=== PATIENT | female | born 1965 | race African-American/Black ===

== ENCOUNTER 2016-10-07 17:56 | Observation (INO) ==
[2016-10-07] MEDS ORDERED: ASPIRIN 325 MG TABLET PO STA (19:23)
[2016-10-07] MEDS ORDERED: NITROGLYCERIN 2% OINT 1 INCH/GM PACK TOP STA (19:23)
[2016-10-07] MEDS ORDERED: MORPHINE 2 MG/1 ML SYRINGE IV STA (19:23)
[2016-10-07] MEDS ORDERED: ONDANSETRON 4 MG/2 ML VIAL IV STA (19:23)
[2016-10-07] MEDS ORDERED: ALUM/MAG/SIMETH/LIDO VISC 1:1 30 ML BOTTLE PO STA (19:23)
[2016-10-07] MEDS ORDERED: LABETALOL 20 MG/4 ML SYRINGE IV STA (19:23)
--- NOTE | 2016-10-07 19:23 | Emergency Department Note ---
Eliot Wallis Sierra, am scribing for, and in the presence of, Roque Pollard MD 19:05. Atul Wallis Charles R, MD, personally performed the services described in this documentation, ascribed by Cony Mccabe in my presence, and it is both accurate and complete 923 . Arrival - Arrival Chief Complaint: Chest Pain Stated Complaint: CHEST PAINS ED Nursing Triage Note: C/o midsternal chest pain radiating to neck and left arm -onset 10 mins ago. Denies SOB. +dizziness. Mode of Arrival: Wheelchair Limitations: No Limitations Source: Patient Time Seen by Provider: 10/07/16 18:25 - History of Present Illness HPI Narrative: Pt is a 51 y/o female that came to the ED with c/o CP that began about an hour and a half ago. Pt has associated sxs of DUDLEY and elevated blood pressure but denies nausea or SOB. Pt reports the pain is on the left side and is tender to touch and is worse when she moves around. Pt denies a history of heart problems. She states she does have HTN and takes 20 mg Lisinopril daily and did take her dosage last night. Pt denies her blood pressure normally being this high. She denies a Hx of asthma. No other complaints/pain in ED. Onset (ago): hour(s) Consistency: constant Severity: mild, moderate Severity scale (1-10): 3 Quality: sharp Date of Last Menstrual Period: menopause Allergies/Adverse Reactions: Allergies Allergy/AdvReac Type Severity Reaction Status Date / Time ceftriaxone [From Rocephin] Allergy HIVES Verified 08/06/15 15:07 Cherries Allergy HIVES Verified 08/06/15 15:07 Home Medications: Home Medications Medication Instructions Recorded Confirmed Type Lisinopril [Prinivil] 20 mg PO DAILY 10/07/16 10/07/16 History Review of System - Review of System 12 point system: reviewed and no additional remarkable complaints except as stated - Review of System Constitutional: Absent: chills, fever Respiratory: Absent: cough, respiratory distress Cardiovascular: Present: chest pain (left sided CP that is tender to the touch) Gastrointestinal: Absent: abdominal pain, nausea, vomiting Musculoskeletal: Absent: arm pain, back pain, leg pain, neck pain Skin: Absent: rash Neurological: Present: headache Psychiatric: Absent: anxiety Medical,Surgical,& Family Hx - Medical History Cardio: History of: Hypertension - Social History Smoking Status: Never smoker Frequency of Alcohol Use: None Type of Drug Use: None Exam Vital Signs: Vital Signs Temperature 98.7 F 10/07/16 17:59 Pulse Rate 61 10/07/16 19:00 Respiratory Rate 20 10/07/16 19:00 Blood Pressure 227/107 10/07/16 19:00 O2 Sat by Pulse Oximetry 100 10/07/16 19:00 - General General appearance: alert, in no apparent distress - Head Head exam: Present: atraumatic, normocephalic - Eye Eye exam: Present: PERRL, EOMI - ENT ENT exam: Present: mucous membranes moist. Absent: mucous membranes dry - Neck Neck exam: Present: full ROM. Absent: tenderness - Chest Chest inspection: Present: symmetric chest wall rise, tenderness (reproducable chest wall tenderness on the left side) - Respiratory Respiratory exam: Present: normal lung sounds bilaterally. Absent: respiratory distress - Cardiovascular Cardiovascular exam: Present: normal rhythm, bradycardia, normal heart sounds - Abdominal Exam Abdominal exam: Present: soft. Absent: tenderness - Extremities Exam Extremities exam: Present: full ROM. Absent: tenderness - Back Exam Back exam: Present: full ROM. Absent: tenderness - Neurological Exam Neurological exam: Present: alert, oriented X3, CN II-XII intact. Absent: motor sensory deficit - Psychiatric Psychiatric exam: Present: normal affect, normal mood - Skin Skin exam: Present: warm, dry Course - Consultations Consultation #1: Hospitalist will admit patient Time: 19:58 Results - Labs CBC & BMP: 10/07/16 18:58 10/07/16 18:58 Lab Results: I have reviewed the patients labs Labs: Laboratory Tests 10/07/16 18:58 Hgb 11.4 L MCV 79.4 L MCH 25 L MCHC 31.5 L Lymph % (Auto) 16.8 L Lymph # (Auto) 0.9 L Laboratory Tests 10/07/16 18:58 Potassium 3.2 L Chloride 109 H Glucose 138 H Globulin 3.9 H Albumin/Globulin Ratio 0.9 L Critical Care Time Critical Care Time: Yes Total Critical Care Time: 60 Disposition Clinical Impression: Chest pain, Uncontrolled hypertension, Hypokalemia Case discussed with: patient, patient's family Disposition: Still a Patient Condition: Stable Time of Disposition: 20:02
[2016-10-07] MEDS ORDERED: MORPHINE 2 MG/1 ML SYRINGE ONE (19:28)
[2016-10-07] MEDS ORDERED: LABETALOL 20 MG/4 ML SYRINGE IV ONE (19:28)
[2016-10-07] MEDS ORDERED: ONDANSETRON 4 MG/2 ML VIAL ONE (19:28)
[2016-10-07] MEDS ORDERED: ASPIRIN 325 MG TABLET ONE ×2 (19:28→19:36)
[2016-10-07] MEDS ORDERED: ALUM/MAG/SIMETH/LIDO VISC 1:1 30 ML BOTTLE PO ONE (19:28)
[2016-10-07] MEDS ORDERED: NITROGLYCERIN 2% OINT 1 INCH/GM PACK TOP ONE ×2 (19:28→19:35)
[2016-10-07 19:31] LABS: Basophils % 0.7 % (0.0-0.8); Eosinophils # 0.1 10*3/uL (0.0-0.87); Eosinophils % 1.3 % (0.00-10.9); Hematocrit 36.2 VOL% (35.7-47.0); Hemoglobin 11.4 GM/DL (12.0-16.0); Immature Granulocytes % 0.2 %; Immature Granulocytes Absolute 0.01 #; Lymphocytes # 0.9 10*3/uL (1.4-4.0); Lymphocytes % 16.8 % (21.3-54.2); Mean Corpuscular HGB Conc 31.5 GM/DL (32-36); Mean Corpuscular Hemoglobin 25 PG (27-34); Mean Corpuscular Volume 79.4 FL (87-102); Mean Platelet Volume 10.9 FL (9.6-12.0); Monocytes # 0.6 10*3/uL (0.11-0.8); Monocytes % 10.5 % (1.7-12.7); Neutrophils # 3.8 10*3/uL (1.4-7.4); Neutrophils % 70.5 % (38.7-73.9); Platelet Count 290 T/CUMM (130-400); Red Blood Count 4.56 MC/CUMM (3.8-5.5); Red Cell Distribution Width 14.6 % (9.3-17.3); White Blood Count 5.4 T/CUMM (4-12)
[2016-10-07 19:39] LABS: D-Dimer <= 0.5 MG/L FEU; INR 1.1; PT Patient Result 11.6 SECS
[2016-10-07 19:44] LABS: Albumin 3.6 G/DL (3.4-5.0); Bilirubin,Total 0.4 MG/DL (0.2-1.0); Potassium 3.2 MMOL/L (3.5-5.1); Total Protein 7.5 G/DL (6.4-8.3)
[2016-10-07] MEDS ORDERED: POTASSIUM CHLORIDE 20 MEQ TABLET PO STA (19:54)
[2016-10-07] MEDS ORDERED: ONDANSETRON 4 MG/2 ML VIAL IV PRN (20:01)
[2016-10-07] MEDS ORDERED: ENOXAPARIN 100 MG/ML SYRINGE SUBCUT STA (20:03)
[2016-10-07] MEDS ORDERED: POTASSIUM CHLORIDE 20 MEQ TABLET PO ONE (20:05)
[2016-10-07] MEDS ORDERED: ENOXAPARIN 80 MG/0.8 ML SYRINGE SUBCUT ONE ×3 (20:06→20:07)
[2016-10-07 20:11] LABS: Apearance,Urine Slightly Hazy (Clear); Bilirubin,Urine Negative (Negative); Blood, Urine Negative (Negative); Glucose,Urine (UA) Negative (Negative); Hyaline Casts,Urine 7 /LPF (0-3); Ketones,Urine Negative (Negative); Mucus,Urine Occasional /LPF (Occasional); Nitrite,Urine Negative (Negative); Protein,Urine 100 MG/DL; Squamous Epithelial Cell,Urine Occasional /HPF (0-10); Urine Color Yellow (Yellow); Urine Specific Gravity 1.017 (1.001-1.035); Urine Urobilinogen < 2.0 EU/DL (0.2-1.0); WBC,Urine 1 /HPF (0-6)
[2016-10-07] MEDS ORDERED: hydrALAZINE 20 MG/1 ML VIAL IV STA (20:31)
[2016-10-07] MEDS ORDERED: hydrALAZINE 20 MG/1 ML VIAL ONE (20:32)
[2016-10-07 20:43] LABS: Risk Ratio 3.2; VLDL CHOLESTEROL 15.8 MG/DL
--- NOTE | 2016-10-07 20:47 | XRay Report ---
XR chest 2V Indication: Chest pain. Comparison: None. Technique: PA and lateral chest x-ray was performed. Findings: The heart size appears borderline in size. The mediastinal contour and hilar structures demonstrate no significant abnormalities. Lungs are clear. Bones and soft tissues demonstrate no evidence of acute pathology. Impression: 1. No active cardiopulmonary disease. 10/07/2016 8:43 PM PROCEDURE INTERPRETED AT [facility] DEPARTMENT OF RADIOLOGY Final Report Signed by: Dr. Fili Sheppard
--- NOTE | 2016-10-07 20:54 | Hospitalist History & Physical ---
Assessment and Plan (1) Chest pain Status: Acute Assessment and plan: Chest pain relieved with O2, morphine and NTG in ED. Nonreproducible to palpation. Admit for observation and possible stress test in the am. Cardiology consulted. Current Visit: Yes (2) Uncontrolled hypertension Status: Acute Assessment and plan: BP 214/108 on admission. Up to 227/107. Lobetalol and hydralazine given in ED. Systolic down to 180 at time of exam. Patient states that she takes Lisinopril 20mg daily, but has not been compliant in the last few months. Continue to monitor BP overnight. Continue home meds. Add prn hydralazine. Patient is asymptomatic. Current Visit: Yes (3) Hypokalemia Status: Acute Current Visit: Yes History of Present Illness Chief complaint: chest pain History of present illness: Ms. Ta is a 51 year old female risk factors significant for: hypertension , family history and obesity [facility] with complaints of chest pain with onset 3 hours ago. The patient reports that, after eating tonight, she began to experience a "vice-like" tightness over her left chest wall with pain that radiated to her neck, jaw and left shoulder. She also reports numbness and tingling in her left fingers. She states she did not take anything for the pain, opting instead to come directly to the emergency room. On admission, she was found to be in hypertensive urgency with associated chest pain. She was given oxygen, morphine, aspirin, nitroglycerin paste, hydralazine , and lobetalol with appropriate response. On exam, the patient is resting comfortably and in no acute distress. She denies headache, shortness of breath, nausea/vomiting, edema. Chest pain is nonreproducible to palpation. The patient notes that she has a significant family history of heart disease before the age of 55. EKG is unremarkable; NSR. Cardiac enzymes are negative. Given her risk factors, the patient will be admitted for observation and possible stress test in the am. Cardiology will be consulted. She is a full code. Home Medications Medication Instructions Recorded Confirmed Type Lisinopril [Prinivil] 20 mg PO DAILY 10/07/16 10/07/16 History Allergies Allergy/AdvReac Type Severity Reaction Status Date / Time ceftriaxone [From Rocephin] Allergy HIVES Verified 08/06/15 15:07 Cherries Allergy HIVES Verified 08/06/15 15:07 Medical,Surgical,& Family Hx - Medical History Cardio: History of: Hypertension - Family History Family History: Reports;: Family Heart Disease, Family Hypertension - Social History Smoking Status: Never smoker Frequency of Alcohol Use: None Type of Drug Use: None Marital Status: Lives With:: Spouse Functional capacity: independent ambulation - Constitutional Constitutional: Absent: fever(s), headache(s), night sweats, weakness - EENT Eyes: Present: blurry vision Ears: Absent: decreased hearing, ear pain Nose, mouth and throat: Absent: headache(s), neck pain, sore throat - Cardiovascular Cardiovascular: Present: chest pain at rest, dyspnea on exertion, radiating jaw , neck or arm pain. Absent: diaphoresis, edema, lightheadedness, palpitations - Respiratory Respiratory: Present: dyspnea on exertion. Absent: cough, dyspnea, wheezing, snoring, pain on inspiration - Gastrointestinal Gastrointestinal: Absent: abdominal pain, constipation, diarrhea, nausea, vomiting - Genitourinary Genitourinary: Absent: difficulty urinating, dysuria, flank pain - Musculoskeletal Musculoskeletal: Absent: back pain, muscle weakness - Neurological Neurological: Present: numbness, paresthesias. Absent: abnormal gait, abnormal speech, dizziness, syncope - Psychiatric Psychiatric: Absent: anxiety, confusion, depression - Endocrine Endocrine: Absent: cold intolerance, fatigue, heat intolerance - Hematologic/Lymphatic Hematologic/Lymphatic: Absent: easy bleeding, easy bruising Exam - Constitutional Exam: General appearance: obese, no acute distress - Head Head exam: Present: normocephalic, atraumatic - Eye Eye exam: Present: EOMI. Absent: conjunctival injection, nystagmus Pupils: Present: EMMANUEL, normal accommodation - ENT ENT exam: Present: normal exam, normal external ear exam - Neck Neck exam: Present: normal inspection. Absent: lymphadenopathy, tenderness, thyromegaly - Respiratory Respiratory exam: Present: clear to auscultation bilaterally. Absent: rales, rhonchi, wheezes - Cardiovascular Cardiovascular exam: Present: regular rate and rhythm. Absent: carotid bruit, gallop, rubs - GI/Abdominal GI/Abdominal exam: Present: normal bowel sounds. Absent: ascites, distended, mass - Extremities Exam Extremities exam: Present: normal inspection, normal capillary refill. Absent: edema - Back Exam Back exam: Absent: CVA tenderness (L), CVA tenderness (R) - Neurological Exam Neurological exam: Present: alert, oriented X3 - Psychiatric Psychiatric exam: Present: normal affect, normal mood - Skin Skin exam: Present: normal color, warm, dry Results - Labs CBC & BMP: 10/07/16 18:58 10/07/16 18:58 Lab Results: I have reviewed the past 24 hour labs - EKG EKG results: interpreted by CANDISD - Diagnostic Findings Procedure: Chest x-ray: image reviewed by me
[2016-10-07] MEDS ORDERED: hydrALAZINE 20 MG/1 ML VIAL IV PRN (21:23)
[2016-10-07] MEDS ORDERED: MORPHINE 2 MG/1 ML SYRINGE IV PRN (21:26)
[2016-10-08] MEDS: KETOROLAC 15 MG/1 ML VIAL IV SCH ×3 (00:05→12:12)
[2016-10-08 03:27] LABS: Eosinophils # 0.2 10*3/uL (0.0-0.87); Eosinophils % 3.6 % (0.00-10.9); Hematocrit 36.2 VOL% (35.7-47.0); Hemoglobin 11.4 GM/DL (12.0-16.0); Lymphocytes # 1.3 10*3/uL (1.4-4.0); Mean Corpuscular HGB Conc 31.5 GM/DL (32-36); Mean Corpuscular Hemoglobin 25 PG (27-34); Mean Corpuscular Volume 79.9 FL (87-102); Mean Platelet Volume 10.3 FL (9.6-12.0); Monocytes # 0.6 10*3/uL (0.11-0.8); Monocytes % 13.6 % (1.7-12.7); Neutrophils # 2.2 10*3/uL (1.4-7.4); Neutrophils % 51.8 % (38.7-73.9); Platelet Count 262 T/CUMM (130-400); Red Blood Count 4.53 MC/CUMM (3.8-5.5); Red Cell Distribution Width 14.6 % (9.3-17.3); White Blood Count 4.2 T/CUMM (4-12)
[2016-10-08 04:34] LABS: Free T4 (Free Thyroxine) 1.09 NG/DL (0.76-1.46); Thyroid Stimulating Hormone 2.08 uIU/ml (0.358-3.74)
[2016-10-08 04:45] LABS: Calcium 9.1 MG/DL (8.5-10.1); Osmolality,Calculated 284.8 MOS/KG (273-304); Potassium 4.2 MMOL/L (3.5-5.1)
--- NOTE | 2016-10-08 06:31 | EKG Report ---
Stationary ECG Study [facility] Test Date: 10/07/2016 9:54:56 PM Pat Name: CAROLINA ORTIZ Department: Room: 287 Gender: F Microfilmer: Jd : 1965 Requested by: Roque Rodriges Order Number: [id number] Reading MD: NAYA ARIAS Intervals [place] Rate: 62 P: 37 MN: 143 QRS: 48 QRSD: 91 T: 39 QT: 445 QTc: 449 Interpretive Statements SINUS RHYTHM Electronically Signed On 10-08-16 17:17:11 CDT by NAYA ARIAS [email or web address]
--- NOTE | 2016-10-08 07:55 | EKG Report ---
Stationary ECG Study [facility] ER Test Date: 10/07/2016 6:05:40 PM Pat Name: CAROLINA ORTIZ Department: Room: 287 Gender: F Natural Resources Specialist: Kristi Jones : 1965 Requested by: Roque Rodriges Order Number: [id number] Reading MD: NAYA ARIAS Intervals [place] Rate: 75 P: 78 VA: 135 QRS: 58 QRSD: 89 T: 72 QT: 390 QTc: 420 Interpretive Statements SINUS RHYTHM Electronically Signed On 10-08-16 17:15:50 CDT by NAYA ARIAS [email or web address]
[2016-10-08] MEDS ORDERED: LISINOPRIL 20 MG TABLET PO SCH (09:00)
[2016-10-08] MEDS ORDERED: ASPIRIN EC 81 MG TABLET PO SCH (09:00)
[2016-10-08] MEDS ORDERED: METOPROLOL TARTRATE 25 MG TABLET PO SCH (09:00)
[2016-10-08] MEDS ORDERED: PANTOPRAZOLE 40 MG TABLET PO SCH (09:00)
--- NOTE | 2016-10-08 09:02 | Cardiology Consult Note ---
Assessment and Plan - Time spent with patient Time spent with patient: Greater than 30 minutes (1) Chest pain Status: Acute Assessment and plan: See plan of care listed below. Current Visit: Yes (2) Uncontrolled hypertension Status: Chronic Assessment and plan: See plan of care listed below. Current Visit: Yes (3) Noncompliance Status: Chronic Assessment and plan: See plan of care listed below. Current Visit: Yes History of Present Illness - Data of Consult Patient: new to practice Consult date: 10/08/16 Requesting Physician: Arnaud Schulte - Consult Narrative Reason for consult: chest pain History of present illness: Splicing Machine Operator: SWATI Reardon PCP: [facility] Ms. Ta is a 51 year old female without known history of coronary artery disease, not routinely followed by cardiology. Patient presented to emergency department yesterday with complaints of midsternal chest pain. Patient has cardiac risk factors significant for hypertension, sedentary lifestyle and family history of coronary artery disease (uncle and grandfather had myocardial infarction). Patient is a lifetime non-smoker. Denies history of hyperlipidemia and diabetes. Patient reports that she has never undergone cardiac workup. Patient presented to [facility] yesterday with complaints of midsternal chest pain. She describes her pain as a sharp pain that radiates to her neck and left arm. This was associated with headache. She denies shortness of breath, nausea, diaphoresis and heart racing/palpitations. She tells me that this began yesterday evening around 6:00 after eating a sandwich. She was sitting down when it began. Lasted approximately 20 mins. She is unable to identify any specific aggravating or alleviating factors. Also, unable to rate her pain. However, she does confirm that this was not worsened with exertion. She presented to the ER for further evaluation. Upon arrival to ER her blood pressure was noted to be 227/107. Subsequently, she was given oxygen, morphine, aspirin, nitroglycerin paste, hydralazine and labetalol. This relieved her pain. She has been without any recurrent symptoms. She reports that she has been noncompliant with her lisinopril for the last several months. Spent greater than 5 minutes discussing the importance of medication compliance with her. She verbalizes understanding and reports that she will be compliant from now on. Patient has been admitted under hospitalist's service and housed in the telemetry unit. Cardiology has been consulted to further evaluate patient's chest pain. Of note, patient confirms dyspnea on exertion and easy fatigability. She reports that she used to walk approximately 5 miles frequently. However, mostly 6 months ago she stopped walking due to progressive dyspnea on exertion. Patient was seen and examined on the telemetry unit. She is resting in bed comfortably in no acute distress. Currently without chest pain, heaviness and tightness. D-dimer negative. BNP 26. Cardiac biomarkers have been negative 3. EKG is unremarkable. Chest x-ray stable. Blood pressure is much better controlled this morning. Upon exam, her chest pain is reproducible to light palpation. She also confirms that it is reproducible with coughing. Toradol has been initiated for treatment of her chest wall pain. She has been without recurrent symptoms after initiation of this medication. For now, I will keep patient NPO and discuss with Dr. Reardon regarding further cardiac workup, inpatient cardiac stress testing versus outpatient cardiac stress testing. Assessment/plan: 1. CHEST PAIN - Her chest pain is reproducible to light palpation. Toradol has been initiated by hospital medicine. Without recurrent symptoms. Cardiac biomarkers have been negative and EKG is unremarkable. However, patient does report a six month history of dyspnea on exertion and exercise intolerance. Will discuss with Dr. Reardon regarding further cardiac workup, inpatient cardiac stress testing versus outpatient cardiac stress testing. 2. UNCONTROLLED HYPERTENSION -This is now well controlled. Continue current plan of care. 3. NONCOMPLIANCE WITH MEDICATIONS - Counseled patient on the importance of medication compliance. Further plan and addendum to follow per Dr. Reardon. CC: Jina Haas MD - Home Medications and Allergies Home Medications: Home Medications Medication Instructions Recorded Confirmed Type Lisinopril [Prinivil] 20 mg PO DAILY 10/07/16 10/07/16 History Allergies/Adverse Reactions: Allergies Allergy/AdvReac Type Severity Reaction Status Date / Time ceftriaxone [From Rocephin] Allergy HIVES Verified 08/06/15 15:07 Cherries Allergy HIVES Verified 08/06/15 15:07 - Constitutional Constitutional: Present: headache(s). Absent: chills, frequent falls, lethargy , malaise, weakness, weight gain, weight loss - Cardiovascular Cardiovascular: Present: chest pain at rest, dyspnea on exertion, radiating jaw , neck or arm pain. Absent: claudication, diaphoresis, edema, lightheadedness, orthopnea, palpitations, PND - Respiratory Respiratory: Present: dyspnea on exertion. Absent: wheezing, snoring, change in phlegm color - Gastrointestinal Gastrointestinal: Absent: abdominal pain, change in bowel habits, coffee ground emesis, constipation, cramping, diarrhea, heartburn, hematemesis, hematochezia, loose stools, melena, nausea, vomiting - Neurological Neurological: Present: headache(s). Absent: abnormal gait, abnormal speech, behavioral changes, dizziness, frequent falls, numbness, syncope - Hematologic/Lymphatic Hematologic/Lymphatic: Absent: easy bleeding, easy bruising, lymphadenopathy Medical,Surgical,& Family Hx - Medical History Cardio: History of: Hypertension Musculoskeletal: No history of: Amputation - Family History Family History: Reports;: Family Heart Disease, Family Hypertension, Family Stroke - Social History Smoking Status: Never smoker Frequency of Alcohol Use: None Type of Drug Use: None Physical Examination Vital Signs Temp Pulse Resp BP Pulse Ox 98.7 F 85 18 214/108 100 10/07/16 17:59 10/07/16 17:59 10/07/16 17:59 10/07/16 17:59 10/07/16 17:59 Other: General: Appears well with no apparent distress. Pleasant and cooperative. Appears comfortable. HEENT: PERRL, normocephalic, atraumatic. Mucous membranes moist. No jaundice noted. Conjunctiva moist and clear, sclerae anicteric Neck: No JVD/HJR, no thyromegaly or lymphadenopathy noted. No carotid bruit appreciated Cardiac: Regular rate and rhythm. No murmur rub or gallop. Chest: Chest wall is tender to light palpation. Lungs: Clear to auscultation without accessory muscle use to assist the respiratory pattern. Not requiring oxygen. Abdomen: Soft, bowel sounds normoactive. Nontender and nondistended. No abdominal bruit or thrill noted. No masses noted. Extremities: No clubbing, cyanosis noted. No edema noted. Upper extremity pulses 2+. Lower extremity pulses 2+. Capillary refill less than 3 seconds. Skin: No unusual lesions or rashes. No skin breakdown appreciated. Neuro: Awake, alert and oriented 3. Moves all extremities well without hemiparesis or paralysis. No essential tremor is appreciated. Result/EKG - Labs CBC & BMP: 10/08/16 03:21 10/08/16 03:21 Lab Results: I have reviewed the past 24 hour labs Labs: Laboratory Results - last 24 hr 10/07/16 10/08/16 10/08/16 22:32 03:21 03:21 WBC RBC Hgb Hct MCV MCH MCHC RDW Plt Count MPV Neut % (Auto) Lymph % (Auto) [place] % (Auto) Eos % (Auto) Baso % (Auto) Neut # (Auto) Lymph # (Auto) [place] # (Auto) Eos # (Auto) Baso # (Auto) Immature Gran % Nucleated RBC % Immature Gran # Nucleated RBCs # Sodium Potassium Chloride Carbon Dioxide Anion Gap BUN Creatinine GFR Calculation BUN/Creatinine Ratio Glucose Hemoglobin A1c 5.3 Calculated Osmolality Calcium Troponin I < 0.015 Free T4 1.09 TSH 3rd Generation 2.080 10/08/16 10/08/16 10/08/16 03:21 03:21 03:21 WBC 4.2 RBC 4.53 Hgb 11.4 L Hct 36.2 MCV 79.9 L MCH 25 L MCHC 31.5 L RDW 14.6 Plt Count 262 MPV 10.3 Neut % (Auto) 51.8 Lymph % (Auto) 30.0 [place] % (Auto) 13.6 H Eos % (Auto) 3.6 Baso % (Auto) 1.0 H Neut # (Auto) 2.2 Lymph # (Auto) 1.3 L [place] # (Auto) 0.6 Eos # (Auto) 0.2 Baso # (Auto) 0.0 Immature Gran % 0.0 Nucleated RBC % 0.0 Immature Gran # 0.00 Nucleated RBCs # 0.00 Sodium 144 Potassium 4.2 Chloride 107 Carbon Dioxide 29 Anion Gap 12.2 BUN 12 Creatinine 1.00 GFR Calculation 78 BUN/Creatinine Ratio 12.00 Glucose 86 Hemoglobin A1c Calculated Osmolality 284.8 Calcium 9.1 Troponin I < 0.015 Free T4 TSH 3rd Generation - EKG EKG results: interpreted by me, sinus rhythm
--- NOTE | 2016-10-08 11:48 | Discharge Summary ---
Hospital Course - Hospital Course Hospital Course: Ms Ta presented with atypical chest pain. She also has had some dyspnea on exertion. She ruled out for TX and was seen by cardiology. She will go to the clinic for outpatient stress test next week. She has some chest wall pain relieved with Toradol and I have recommended she use OTC alleve once or twice a day for 5 -7 days with food for this. Her blood pressure is under improved control with resumption of her lisinopril and addition of Metoprolol. Her potassium has been replaced. Her questions were answered and she was ready for discharge. - Time spent with patient Time with patient DS: Less than 30 minutes Diagnosis - Discharge Diagnosis (1) Chest pain Status: Acute (2) Uncontrolled hypertension Status: Chronic (3) Hypokalemia Status: Acute (4) Noncompliance Status: Chronic Specialty Discharge - Follow Up or Referrals Follow up with: [facility] [Provider Group] - 1 Week (APPT. AT [facility] [place] WITH MISS ZAIDI ON 10/15/16 AT 2:00) Dick Reardon MD [Physician] - 10/22/16 9:20 am Discharge Plan - Discharge Data Disposition: Disch To Home/Self Care Condition at Discharge: Stable Discharge Diet: heart healthy, low salt diet Activity: resume usual activities as tolerated - Discharge Medications New Aspirin EC Tab 81 mg PO DAILY tablet Metoprolol Tartrate Tab [Lopressor Tab] 25 mg PO BID #60 tablet Continue Lisinopril [Prinivil] 20 mg PO DAILY - Follow Up or Referral Follow Up: [facility] [Provider Group] - 1 Week (APPT. AT [facility] WITH MISS ZAIDI ON 10/15/16 AT 2:00) Dick Reardon MD [Physician] - 10/22/16 9:20 am - Forms/Instructions Instructions: Chest Pain (DC), Chronic Hypertension (DC) Exam - Constitutional Vitals: Period Temp Pulse Resp BP Sys/Mendez Pulse Ox Last 24 Hr 97.2 F-98.4 F 50-61 16-18 105-174/71-95 97-97 General appearance: normal weight, no acute distress - Head Head exam: Present: normocephalic, atraumatic - Eye Eye exam: Present: EOMI. Absent: scleral icterus - Respiratory Respiratory exam: Present: clear to auscultation bilaterally - Cardiovascular Cardiovascular exam: Present: regular rate and rhythm, other (mild chest wall tenderness) - GI/Abdominal GI/Abdominal exam: Present: normal bowel sounds, soft. Absent: tenderness - Extremities Exam Extremities exam: Absent: edema Discharge Results Labs on day of discharge: Labs from last 24 hours 10/08/16 10/08/16 10/08/16 03:21 03:21 03:21 WBC 4.2 RBC 4.53 Hgb 11.4 L Hct 36.2 MCV 79.9 L MCH 25 L MCHC 31.5 L RDW 14.6 Plt Count 262 MPV 10.3 Neut % (Auto) 51.8 Lymph % (Auto) 30.0 [place] % (Auto) 13.6 H Eos % (Auto) 3.6 Baso % (Auto) 1.0 H Neut # (Auto) 2.2 Lymph # (Auto) 1.3 L [place] # (Auto) 0.6 Eos # (Auto) 0.2 Baso # (Auto) 0.0 Immature Gran % 0.0 Nucleated RBC % 0.0 Immature Gran # 0.00 Nucleated RBCs # 0.00 Sodium 144 Potassium 4.2 Chloride 107 Carbon Dioxide 29 Anion Gap 12.2 BUN 12 Creatinine 1.00 GFR Calculation 78 BUN/Creatinine Ratio 12.00 Glucose 86 Hemoglobin A1c Calculated Osmolality 284.8 Calcium 9.1 Troponin I < 0.015 Free T4 TSH 3rd Generation 10/08/16 10/08/16 10/07/16 03:21 03:21 22:32 WBC RBC Hgb Hct MCV MCH MCHC RDW Plt Count MPV Neut % (Auto) Lymph % (Auto) [place] % (Auto) Eos % (Auto) Baso % (Auto) Neut # (Auto) Lymph # (Auto) [place] # (Auto) Eos # (Auto) Baso # (Auto) Immature Gran % Nucleated RBC % Immature Gran # Nucleated RBCs # Sodium Potassium Chloride Carbon Dioxide Anion Gap BUN Creatinine GFR Calculation BUN/Creatinine Ratio Glucose Hemoglobin A1c 5.3 Calculated Osmolality Calcium Troponin I < 0.015 Free T4 1.09 TSH 3rd Generation 2.080 DS: Provider Date of admission: 10/07/16 20:01 Primary care physician: . No PCP Attending physician on admission: Arnaud Schulte MD Discharging clinician: Jina Haas MD
[2016-10-08 12:25] VITALS: BP 131/60
== END 2016-10-08 13:30 | disposition home or self-care (01) ==
LOC: N.ED 17:56 → N.EDINP 17:56 → SUATTDRO 20:01 → N.TELEN 20:36
PROVIDERS: ADMIT Family Medicine; ATTEND Internal Medicine

== ENCOUNTER 2017-02-04 09:33 | Inpatient (IN) ==
[2017-02-04] MEDS ORDERED: PANTOPRAZOLE 40 MG VIAL IV STA (10:36)
--- NOTE | 2017-02-04 10:48 | Emergency Department Note ---
Loki Wallis Manpreet, am scribing for, and in the presence of, Rustam Kearney MD 10: 45. Christel Wallis James D, MD, personally performed the services described in this documentation, ascribed by Lizandro Manjarrez in my presence, and it is both accurate and complete . Arrival - Arrival Chief Complaint: GI Bleed/Rectal Stated Complaint: n/v, throwing up blood ED Nursing Triage Note: vomiting bright red blood this am with upper abd pain - pt was sent here from [facility] [place] [facility] [place] Mode of Arrival: Ambulatory Limitations: No Limitations Source: Patient Time Seen by Provider: 02/04/17 10:36 - History of Present Illness HPI Narrative: Pt is a 51 y/o female who presents to the ED with CC of hematemesis this AM with epigastric Abd pain. Pt states she had Abd pain 4 days with vomiting then got better the next day but had blood in her emesis this AM. Pt denies taking any Aleve or BC powders, melena, and SOB. Pt c/o being light headed and nausea. Pt denies tobacco use or EtOH use. No other pains/complaints reported to the ED. Onset (ago): day(s) (4 days ago) Consistency: constant Severity: moderate Date of Last Menstrual Period: wilmar Allergies/Adverse Reactions: Allergies Allergy/AdvReac Type Severity Reaction Status Date / Time ceftriaxone [From Rocephin] Allergy HIVES Verified 08/06/15 15:07 Cherries Allergy HIVES Verified 08/06/15 15:07 Home Medications: Home Medications Medication Instructions Recorded Confirmed Type Lisinopril [Prinivil] 20 mg PO QAM 10/07/16 02/04/17 History Aspirin EC Tab 81 mg PO QAM 02/04/17 02/04/17 History hydrALAZINE TAB [Apresoline Tab] 10 mg PO BID 02/04/17 02/04/17 History hydroCHLOROthiazide 12.5 mg PO QAM 02/04/17 02/04/17 History [Hydrochlorothiazide] Review of System - Review of System 12 point system: reviewed and no additional remarkable complaints except as stated - Review of System Constitutional: Absent: chills, diaphoresis, fever Respiratory: Absent: cough, respiratory distress, wheezing Cardiovascular: Absent: chest pain Gastrointestinal: Present: abdominal pain, nausea, vomiting, hematemesis. Absent: diarrhea, melena Genitourinary female: Absent: dysuria Musculoskeletal: Absent: back pain Neurological: Absent: headache, weakness, numbness, paresthesias Medical,Surgical,& Family Hx - Medical History Cardio: History of: Hypertension Musculoskeletal: No history of: Amputation - Family History Family History: Reports;: Family Heart Disease, Family Hypertension, Family Stroke - Social History Smoking Status: Never smoker Frequency of Alcohol Use: None Type of Drug Use: None Exam Vital Signs: Vital Signs Temperature 97.4 F L 02/06/17 04:46 Pulse Rate 50 L 02/06/17 04:46 Respiratory Rate 18 02/06/17 05:30 Blood Pressure 146/78 02/06/17 04:46 O2 Sat by Pulse Oximetry 93 L 02/06/17 04:46 GENERAL: This is a well-nourished well-developed black female in no apparent distress. VITAL SIGNS: Reviewed HEENT: Head is atraumatic and normocephalic. Pupils are equal round react to light. Extraocular movements are intact. [place] conjunctiva. Oropharynx is benign with moist mucous membranes. NECK: Neck is soft and supple without tenderness. There are no masses. There is no lymphadenopathy. LUNGS: Lungs are clear to auscultation. Chest rises symmetrically. There is no chest wall tenderness. CV: Heart is regular rate and rhythm without murmurs rubs or gallops. ABDOMEN: Abdomen is soft, nontender to palpation. There are no abdominal abnormal masses palpated. There is no organomegaly. Bowel sounds are present and active. SKIN: Skin is warm and dry. No rash. EXTREMITIES: Patient has full range of motion without tenderness. There is no pedal edema. NEUROLOGIC: Awake alert and oriented 4. Cranial nerves II through XII are grossly intact. Motor is 5 over 5 in all extremities bilaterally. Results - Labs CBC & BMP: 02/06/17 03:45 02/06/17 03:45 Disposition Clinical Impression: Upper GI bleeding Disposition: Still a Patient Condition: Stable
[2017-02-04 11:35] LABS: Basophils # 0.1 10*3/uL (0.0-0.2); Basophils % 1.2 % (0.0-0.8); Eosinophils # 0.2 10*3/uL (0.0-0.87); Eosinophils % 5.5 % (0.00-10.9); Hematocrit 40.2 VOL% (35.7-47.0); Immature Granulocytes % 0.2 %; Immature Granulocytes Absolute 0.01 #; Lymphocytes # 1.2 10*3/uL (1.4-4.0); Lymphocytes % 27.6 % (21.3-54.2); Mean Corpuscular HGB Conc 32.3 GM/DL (32-36); Mean Corpuscular Hemoglobin 26 PG (27-34); Mean Corpuscular Volume 78.8 FL (87-102); Mean Platelet Volume 9.6 FL (9.6-12.0); Monocytes # 0.5 10*3/uL (0.11-0.8); Monocytes % 11.9 % (1.7-12.7); Neutrophils # 2.3 10*3/uL (1.4-7.4); Neutrophils % 53.6 % (38.7-73.9); Platelet Count 295 T/CUMM (130-400); Red Cell Distribution Width 15.9 % (9.3-17.3); White Blood Count 4.2 T/CUMM (4-12)
[2017-02-04 11:44] LABS: Partial Thromboplastin Time 33.8 SECS (0-40)
[2017-02-04 12:07] LABS: Bilirubin,Total 0.5 MG/DL (0.2-1.0); Calcium 9.7 MG/DL (8.5-10.1); Osmolality,Calculated 277.7 MOS/KG (273-304); Potassium 3.8 MMOL/L (3.5-5.1); Total Protein 8.6 G/DL (6.4-8.3)
[2017-02-04] MEDS ORDERED: PANTOPRAZOLE 40 MG VIAL IV ONE (12:16)
--- NOTE | 2017-02-04 12:29 | XRay Report ---
XR abdomen 2V Indication: Gastrointestinal hemorrhage Comparison: None available Findings: No free fluid or free air seen. The bowel gas pattern appears within normal limits. No abnormal calcifications are present. No other abnormality is identified. Impression: No evidence of abnormality demonstrated. PROCEDURE INTERPRETED AT [facility] DEPARTMENT OF RADIOLOGY Final Report Signed by: Dr. Tobi Victoria
[2017-02-04] MEDS ORDERED: hydrALAZINE 20 MG/1 ML VIAL IV ONE (12:42)
[2017-02-04] MEDS ORDERED: hydrALAZINE 20 MG/1 ML VIAL ONE (12:52)
--- NOTE | 2017-02-04 14:27 | Hospitalist History & Physical ---
<MonmouthGerman gonzalez - Last Filed: 02/04/17 14:12> Assessment and Plan - Time spent with patient Time spent with patient: Greater than 30 minutes History of Present Illness Chief complaint: bloody emesis History of present illness: Ms. Ta is a 51 year old -[place] female with past medical history significant for hypertension and GERD who presents to the ED today with complaints of hematemesis since this morning. Patient reports that she has been nauseous and vomiting for the past week with some retching intermittently. She states that this morning she did have one episode of bright red bloody emesis. She confirms headache, dizziness, blurry vision, heartburn-like pain in her chest, abdominal pain, nausea and vomiting. She does not a decrease in her appetite but states that she has been trying to make herself eat. She denies any diarrhea or shortness of breath. She further denies NSAID use. H&H on admission is stable at 13 and 40.2. This case been discussed with both Dr. Kearney, ER physician, and at this time, admitting physician, the patient will be admitted to the hospital medicine service for further evaluation and treatment. CODE STATUS was discussed; patient is a full code. Home medications have been reviewed and reconciled. Home Medications Medication Instructions Recorded Confirmed Type Lisinopril [Prinivil] 20 mg PO QAM 10/07/16 02/04/17 History Aspirin EC Tab 81 mg PO QAM 02/04/17 02/04/17 History hydrALAZINE TAB [Apresoline Tab] 10 mg PO BID 02/04/17 02/04/17 History hydroCHLOROthiazide 12.5 mg PO QAM 02/04/17 02/04/17 History [Hydrochlorothiazide] Allergies Allergy/AdvReac Type Severity Reaction Status Date / Time ceftriaxone [From Rocephin] Allergy HIVES Verified 08/06/15 15:07 Cherries Allergy HIVES Verified 08/06/15 15:07 Medical,Surgical,& Family Hx - Medical History Cardio: History of: Hypertension Gastrointestinal: History of: GERD Musculoskeletal: No history of: Amputation - Surgical History Reproductive Surgeries: Surgical HX of;: Tubal Ligation - Family History Family History: Reports;: Family Heart Disease, Family Hypertension, Family Stroke - Social History Smoking Status: Never smoker Frequency of Alcohol Use: None Type of Drug Use: None Marital Status: Lives With:: Spouse Functional capacity: independent ambulation 12 point system: reviewed and no additional remarkable complaints except as stated Exam - Constitutional Vitals: Period Temp Pulse Resp BP Sys/Mendez Pulse Ox Last 24 Hr 97.0 F-97.7 F 42-56 18-20 136-189/68-121 99-100 Exam: General appearance: normal weight, no acute distress - Head Head exam: Present: normocephalic, atraumatic - Eye Eye exam: Present: EOMI. Absent: conjunctival injection, nystagmus Pupils: Present: EMMANUEL, normal accommodation - ENT ENT exam: Present: normal exam, normal external ear exam - Neck Neck exam: Present: normal inspection. Absent: lymphadenopathy, tenderness, thyromegaly - Respiratory Respiratory exam: Present: clear to auscultation bilaterally. Absent: rales, rhonchi, wheezes - Cardiovascular Cardiovascular exam: Present: regular rate and rhythm. Absent: carotid bruit, gallop, rubs - GI/Abdominal GI/Abdominal exam: Present: normal bowel sounds. Absent: ascites, distended, mass - Extremities Exam Extremities exam: Present: normal inspection, normal capillary refill. Absent: edema - Back Exam Back exam: Absent: CVA tenderness (L), CVA tenderness (R) - Neurological Exam Neurological exam: Present: alert, oriented X3, CN II-XII intact, reflexes normal - Psychiatric Psychiatric exam: Present: normal affect, normal mood - Skin Skin exam: Present: normal color, warm, dry Results - Labs CBC & BMP: 02/04/17 11:27 02/04/17 11:27 Lab Results: I have reviewed the past 24 hour labs - Impressions This was diabetes and assessment and plan as I am not able to add any new problems to this document. 1. Upper GI bleed: 1 week history of vomiting and retching with one episode of hematemesis this morning. This is likely due to irritation of the esophagus or perhaps evidence of Jossy-Hanna tears. Patient will be admitted with GI bleed. Monitor BP. Trend H&H. Keep n.p.o. IV fluid hydration. Type and screen. Consult GI for possible EGD. 2. Uncontrolled hypertension: Patient has a history of uncontrolled hypertension for which she takes lisinopril 40 mg. She states that she did not take any of her medication this morning. Continue to monitor BP. Restart home medications. Add as needed antihypertensives accordingly. - Diagnostic Findings Procedure: X-ray: image reviewed by me, report reviewed by me (Abdomen: Unremarkable) <Sterling Mcclellan - Last Filed: 02/04/17 15:03> History of Present Illness History of present illness: Ms. Ta is a 51 year old female who is being admitted to the hospital with hematemesis. The patient states that she may have had a past history of peptic ulcer disease, although no endoscopy was performed at the time of that diagnosis. She notes that she takes aspirin on a daily basis as prescribed because of her hypertension. I have interviewed and examined the patient and reviewed all the available laboratory and radiographic test results. I agree with the assessment and plans of KAREN Ramirez. The patient will be admitted to the hospital with an upper gastrointestinal bleed. Gastroenterology has been consulted. Exam - Constitutional Vitals: Period Temp Pulse Resp BP Sys/Mendez Pulse Ox Last 24 Hr 97.0 F-97.7 F 42-56 18-20 136-189/68-121 99-100 Results - Labs CBC & BMP: 02/04/17 11:27 02/04/17 11:27
[2017-02-04] MEDS: PANTOPRAZOLE 40 MG VIAL IV SCH (20:36)
[2017-02-04] MEDS: hydrALAZINE 10 MG TABLET PO SCH (20:39)
[2017-02-05] MEDS: LISINOPRIL 20 MG TABLET PO SCH (08:56)
[2017-02-05] MEDS: hydroCHLOROthiazide 12.5 MG CAPSULE PO SCH (08:57)
[2017-02-05] MEDS: PANTOPRAZOLE 40 MG VIAL IV SCH ×2 (08:57→21:01)
[2017-02-05] MEDS: hydrALAZINE 10 MG TABLET PO SCH ×2 (08:57→21:00)
--- NOTE | 2017-02-05 10:02 | Hospitalist Progress Note ---
Assessment and Plan (1) GI bleed Status: Acute Assessment and plan: She has experienced no further episodes of nausea, vomiting, or hematemesis. Her hematocrit and hemoglobin are 40.2 and 13.0 respectively. Gastroenterology has been consulted. Current Visit: Yes Qualifiers: GI bleed type/associated pathology: gastrointestinal hemorrhage with hematemesis Qualified Code(s): K92.0 - Hematemesis (2) GERD (gastroesophageal reflux disease) Status: Acute Assessment and plan: She has a previous history of GERD. Current Visit: Yes (3) Hypertension Status: Acute Assessment and plan: Her blood pressure is 115/63 today. Current Visit: Yes Qualifiers: Hypertension type: essential hypertension Qualified Code(s): I10 - Essential (primary) hypertension (4) Renal insufficiency Status: Acute Assessment and plan: Her BUN and creatinine are 20 and 1.2 respectively. Her calculated GFR is 62. Current Visit: Yes Hospitalist: Subjective Interval history: Patient feels better today. She is not experiencing abdominal pain, nausea, or vomiting. She is presently being treated with pantoprazole. Gastroenterology has been consulted. Exam - Constitutional Vitals: Period Temp Pulse Resp BP Sys/Mendez Pulse Ox Last 24 Hr 96.4 F-97.8 F 42-75 16-20 113-189/60-121 95-100 General appearance: no acute distress - Head Head exam: Present: normal inspection - Neck Neck exam: Present: normal inspection - Respiratory Respiratory exam: Present: clear to auscultation bilaterally - Cardiovascular Cardiovascular exam: Present: regular rate and rhythm - GI/Abdominal GI/Abdominal exam: Present: normal bowel sounds, soft, other (Nontender with no palpable masses or hepatosplenomegaly.) - Extremities Exam Extremities exam: Present: normal inspection - Skin Skin exam: Present: normal color, warm, intact Results - Labs CBC & BMP: 02/04/17 11:27 02/04/17 11:27
--- NOTE | 2017-02-05 13:30 | Gastrointestinal Consult Note ---
Assessment and Plan (1) Hematemesis Status: Acute Assessment and plan: Episode of hematemesis following multiple episodes of vomiting suggestive of a likely Jossy-Hanna tear. She remained hemodynamically stable. At this point we will plan EGD next week to further evaluate and exclude other potential sources. It is likely she had acute gastroenteritis complicated by Jossy- Hanna tear. Continue PPI treatment antiemetics as needed. Current Visit: Yes History of Present Illness Chief complaint: Nausea vomiting with hematemesis History of present illness: Ms. Ta is a 51 year old female Admitted after several day history of recurrent nausea and vomiting about 2 episodes of hematemesis with reported bright red blood. She has had abdominal cramping discomfort consistent with viral gastroenteritis but has not had symptoms suggestive of peptic ulcer disease. She does have a remote history of reflux but lately has been taking no regular medications for this. She denies any nonsteroidals. She has had no history of alcohol use or prior surgery. Home Medications Medication Instructions Recorded Confirmed Type Lisinopril [Prinivil] 20 mg PO QAM 10/07/16 02/04/17 History Aspirin EC Tab 81 mg PO QAM 02/04/17 02/04/17 History hydrALAZINE TAB [Apresoline Tab] 10 mg PO BID 02/04/17 02/04/17 History hydroCHLOROthiazide 12.5 mg PO QAM 02/04/17 02/04/17 History [Hydrochlorothiazide] Allergies Allergy/AdvReac Type Severity Reaction Status Date / Time ceftriaxone [From Rocephin] Allergy HIVES Verified 08/06/15 15:07 Cherries Allergy HIVES Verified 08/06/15 15:07 Medical,Surgical,& Family Hx - Medical History Cardio: History of: Hypertension Gastrointestinal: History of: GERD Musculoskeletal: No history of: Amputation - Surgical History Reproductive Surgeries: Surgical HX of;: Tubal Ligation - Family History Family History: Reports;: Family Heart Disease, Family Hypertension, Family Stroke - Social History Smoking Status: Never smoker Frequency of Alcohol Use: None Type of Drug Use: None - Constitutional Constitutional: Absent: chills, fatigue, fever(s) - EENT Eyes: Absent: blurry vision Nose, mouth and throat: Absent: dysphagia, epistaxis - Cardiovascular Cardiovascular: Absent: chest pain at rest, chest pain with activity, edema - Respiratory Respiratory: Absent: cough, dyspnea, dyspnea on exertion - Gastrointestinal Gastrointestinal: Present: abdominal pain, bloating, hematemesis, nausea, vomiting. Absent: jaundice - Genitourinary Genitourinary: Absent: hematuria - Neurological Neurological: Absent: confusion, convulsions - Endocrine Endocrine: Absent: fatigue, polyuria - Hematologic/Lymphatic Hematologic/Lymphatic: Absent: easy bleeding, easy bruising Exam - Constitutional Vitals: Period Temp Pulse Resp BP Sys/Mendez Pulse Ox Last 24 Hr 96.4 F-97.8 F 42-75 16-20 97-136/56-76 95-100 General appearance: normal weight, no acute distress - Head Head exam: Present: normal inspection, normocephalic, atraumatic - Eye Eye exam: Present: EOMI. Absent: conjunctival injection, scleral icterus Pupils: Present: EMMANUEL. Absent: irregular - ENT ENT exam: Absent: normal oropharynx - Neck Neck exam: Absent: lymphadenopathy, thyromegaly - Respiratory Respiratory exam: Present: clear to auscultation bilaterally. Absent: accessory muscle use, rales - Cardiovascular Cardiovascular exam: Present: regular rate and rhythm. Absent: systolic murmur - GI/Abdominal GI/Abdominal exam: Absent: ascites, distended, mass, tenderness, rebound - Extremities Exam Extremities exam: Absent: edema - Neurological Exam Neurological exam: Present: alert, oriented X3 - Psychiatric Psychiatric exam: Present: normal affect, normal mood - Skin Skin exam: Present: normal color, dry Results - Labs CBC & BMP: 02/04/17 11:27 02/04/17 11:27 Lab Results: I have reviewed the past 24 hour labs
[2017-02-06 04:17] LABS: Eosinophils % 4.4 % (0.00-10.9); Hematocrit 37.2 VOL% (35.7-47.0); Lymphocytes % 27.4 % (21.3-54.2); Mean Corpuscular HGB Conc 32.3 GM/DL (32-36); Mean Corpuscular Hemoglobin 26 PG (27-34); Mean Corpuscular Volume 79.1 FL (87-102); Mean Platelet Volume 10.7 FL (9.6-12.0); Monocytes % 11.2 % (1.7-12.7); Neutrophils % 56.1 % (38.7-73.9); Platelet Count 254 T/CUMM (130-400); Red Cell Distribution Width 15.9 % (9.3-17.3); White Blood Count 4.1 T/CUMM (4-12)
[2017-02-06 04:18] LABS: Basophils % 0.7 % (0.0-0.8); Eosinophils # 0.2 10*3/uL (0.0-0.87); Immature Granulocytes % 0.2 %; Immature Granulocytes Absolute 0.01 #; Lymphocytes # 1.1 10*3/uL (1.4-4.0); Monocytes # 0.5 10*3/uL (0.11-0.8); Neutrophils # 2.3 10*3/uL (1.4-7.4)
[2017-02-06 05:27] LABS: Calcium 9.1 MG/DL (8.5-10.1); Osmolality,Calculated 284.3 MOS/KG (273-304); Potassium 3.6 MMOL/L (3.5-5.1)
[2017-02-06] MEDS: PANTOPRAZOLE 40 MG VIAL IV SCH ×2 (09:06→20:22)
[2017-02-06] MEDS: hydroCHLOROthiazide 12.5 MG CAPSULE PO SCH (09:07)
[2017-02-06] MEDS: hydrALAZINE 10 MG TABLET PO SCH ×2 (09:07→20:22)
[2017-02-06] MEDS: LISINOPRIL 20 MG TABLET PO SCH (09:07)
--- NOTE | 2017-02-06 10:24 | Hospitalist Progress Note ---
Assessment and Plan (1) GI bleed Status: Acute Assessment and plan: She has experienced no further episodes of nausea, vomiting, or hematemesis. Her hematocrit and hemoglobin are 40.2 and 13.0 respectively. Gastroenterology is following. They plan to perform an EGD. Current Visit: Yes Qualifiers: GI bleed type/associated pathology: gastrointestinal hemorrhage with hematemesis Qualified Code(s): K92.0 - Hematemesis (2) GERD (gastroesophageal reflux disease) Status: Acute Assessment and plan: She has a previous history of GERD. Current Visit: Yes (3) Hypertension Status: Acute Assessment and plan: Her blood pressure is 146/78 today. Current Visit: Yes Qualifiers: Hypertension type: essential hypertension Qualified Code(s): I10 - Essential (primary) hypertension (4) Renal insufficiency Status: Acute Assessment and plan: Her BUN and creatinine are 23and 1.2 respectively. Her calculated GFR is 61. Current Visit: Yes Hospitalist: Subjective Interval history: Patient spent an uneventful night. She was seen in consultation by gastroenterology. She will possibly undergo EGD tomorrow morning. Exam - Constitutional Vitals: Period Temp Pulse Resp BP Sys/Mendez Pulse Ox Last 24 Hr 97.4 F-98.2 F 48-57 16-20 97-146/56-78 93-99 General appearance: no acute distress - Head Head exam: Present: normal inspection - Neck Neck exam: Present: normal inspection - Respiratory Respiratory exam: Present: clear to auscultation bilaterally - Cardiovascular Cardiovascular exam: Present: regular rate and rhythm - GI/Abdominal GI/Abdominal exam: Present: normal bowel sounds, soft, other (Nontender with no palpable masses or hepatosplenomegaly.) - Extremities Exam Extremities exam: Present: normal inspection - Skin Skin exam: Present: normal color, warm, intact Results - Labs CBC & BMP: 02/06/17 03:45 02/06/17 03:45
--- NOTE | 2017-02-06 13:18 | Event Note ---
Chief complaint hematemesis No further bleeding is been reported patient without complaints of pain she is eating well hematocrit stable 37.2%. We again discussed EGD to exclude other pathology from suspected Jossy-Hanna tear. We have discussed proceeding with EGD in a.m. versus her going home to his outpatient she wishes to go ahead and stay and proceed. Review of systems she denies any shortness of breath or chest pain On examination she is afebrile vital signs are stable lungs clear to auscultation no respiratory distress heart regular rate rhythm no murmur no edema abdomen soft nondistended nontender no mass no hepatosplenomegaly oropharynx is benign neck is supple no JVD sclerae anicteric lids conjunctiva was unremarkable extremities no clubbing cyanosis edema all 4 extremities. Recommendations: Continue to monitor H&H plan EGD in a.m. for suspected Jossy- Hanna tear to exclude other potential pathology.
--- NOTE | 2017-02-07 10:55 | History and Physical Update ---
History and Physical Update - Physical Exam Mental Status: alert and oriented Heart: regular rate and rhythm Lung: clear to auscultation Abdomen: within normal limits Vitals: within normal limits
--- NOTE | 2017-02-07 10:58 | Operative Note ---
Date of procedure: 02/07/17 Pre-op diagnosis: Hematemesis Procedure: EGD with biopsy 51-year-old female admitted with hematemesis clinically suspicion for Jossy- Hanna tear now for upper endoscopy to further evaluate. Informed consent was obtained for the patient She was sedated with general anesthesia per anesthesia protocol. Patient was placed in the left lateral decubitus position the Olympus flexible video upper endoscope was inserted into the oral cavity under direct vision the esophagus was intubated. Findings: Esophagus-normal esophageal mucosa proximal and mid distal esophagus with small hiatal hernia no Jossy-Hanna tear was observed no esophagitis or stricture was seen no Savage's noted. Stomach-normal insufflation normal mucosa to direct and retroflexed views of the body fundus and cardia the stomach. In the prepyloric antrum there is approximately 1 cm hamilton-based ulceration with no visible vessel no active bleeding biopsies the periphery were taken. Pylorus-normal Duodenum-normal to the bulb and duodenum to the third portion of the duodenum. The procedure was terminated patient was discharged recovery in good condition. Postop diagnosis: 1. Acute gastric [id number] biopsy-positive for H. pylori we will treat. Continue PPI treatment. Limit nonsteroidals and alcohol use. Repeat EGD March 29 to verify ulcer healing. Anesthesia: none (General per anesthesia) Surgeon / Physician: Tarik Larsen Estimated blood loss: none Specimens: other (Acute gastric ulcer) Condition: stable Disposition: post procedure unit Results - Labs CBC & BMP: 02/06/17 03:45 02/06/17 03:45 Discharge Plan - Discharge Medications No Action hydroCHLOROthiazide [Hydrochlorothiazide] 12.5 mg PO QAM hydrALAZINE TAB [Apresoline Tab] 10 mg PO BID Aspirin EC Tab 81 mg PO QAM Lisinopril [Prinivil] 20 mg PO QAM - Follow Up or Referral - Forms/Instructions
--- NOTE | 2017-02-07 11:08 | Anesthesia Post-Op ---
Anesthesia Post OP - Post Ansesthetic Evaluation Patient seen in post op: Yes Resp: within normal limits CV: within normal limits Mental: within normal limits Temp: within normal limits [id number]: within normal limits Nausea and Vomiting: within normal limits Pain: within normal limits
[2017-02-07] MEDS: hydrALAZINE 10 MG TABLET PO SCH ×2 (12:38→22:13)
[2017-02-07] MEDS: PANTOPRAZOLE 40 MG VIAL IV SCH ×2 (12:39→22:13)
[2017-02-07] MEDS: hydroCHLOROthiazide 12.5 MG CAPSULE PO SCH (12:39)
[2017-02-07] MEDS: LISINOPRIL 20 MG TABLET PO SCH (12:39)
--- NOTE | 2017-02-07 17:43 | Hospitalist Progress Note ---
Hospitalist: Subjective Interval history: Patient was admitted for GI bleed and was found to have gastric ulcer on EGD. Exam - Constitutional Vitals: Period Temp Pulse Resp BP Sys/Mendez Pulse Ox Last 24 Hr 97.3 F-98.8 F 44-68 13-20 88-172/46-86 95-100 Exam: General: No Acute Distress HEENT: Normocephalic, atraumatic, Extra ocular movements intact Neck: Supple, No JVD Chest: Clear to auscultation B/L CV: S1 + S2 audible without murmur, gallop or rub Abd: soft, NT, Non-distended, BS + Ext: No edema Skin: No purpura, bruising or rash Rheumatologic: No Joint deformities Neurologic: Strength 5/5 all extremities, no gross sensory deficits Results - Labs CBC & BMP: 02/06/17 03:45 02/06/17 03:45 - Impressions Assessment and Plan (1) Upper GI bleed Status: Acute Assessment and plan: EGD reveals gastric ulcer, she is on Protonix Current Visit: Yes (2) GERD (gastroesophageal reflux disease) Status: Acute Assessment and plan: She has a previous history of GERD. Current Visit: Yes (3) Hypertension, Ess Status: Acute Assessment and plan: Controlled Current Visit: Yes (4) chronic kidney disease stage III Status: Chronic Assessment and plan: Creatinine stable Current Visit: No Specialty Discharge - Follow Up or Referrals Follow up with: Tarik Larsen MD [Physician] - 03/29/17 8:15 am (REPORT TO ADMISSION DEPT. IN THE EMERGENCY ROOM AT 8:15 TO CHECK IN (REGISTER). PLEASE DO NOT EAT OR DRINK ANYTHING PASS MIDNIGHT MAR. 6....)
[2017-02-08] MEDS: hydroCHLOROthiazide 12.5 MG CAPSULE PO SCH (09:33)
[2017-02-08] MEDS: LISINOPRIL 20 MG TABLET PO SCH (09:33)
[2017-02-08] MEDS: hydrALAZINE 10 MG TABLET PO SCH (09:33)
[2017-02-08] MEDS: PANTOPRAZOLE 40 MG VIAL IV SCH (09:37)
[2017-02-08] MEDS ORDERED: LIDOCAINE 2% 5 ML VIAL ONE (10:46)
[2017-02-08] MEDS ORDERED: PROPOFOL 200 MG/20 ML VIAL IV ONE (10:46)
--- NOTE | 2017-02-08 11:26 | Pathology Report from [facility] ---
[facility] ACCESSION # : [id number] PATIENT NAME : Carolina Ortiz ORDERING DR : NERI PERSON MD CLINICAL HX: Hematemesis POST-OP DX: Antrum ulcer SPECIMEN INFO: Antrum ulcer GROSS DESCRIPTION: The specimen is received in formalin labeled with the patients name and consists of a 0.6 x 0.2 cm aggregate of salazar tissue. Submitted in one cassette. DIAGNOSIS FOR CAROLINA ORTIZ: GASTRIC BIOPSY: Chronic antral gastritis with intestinal metaplasia. H. pylori not seen on H&E or special stain with appropriate control. COLLECTED DATE: 02/07/2017 [facility] REPORT DATE: 02/08/2017 ELECTRONICALLY SIGNED BY: Armando Pina M.D. 02/08/2017 - 9:05:36 [facility]
--- NOTE | 2017-02-08 11:30 | Gastrointestinal Progress Note ---
<Samreen Licona - Last Filed: 02/08/17 11:28> Assessment and Plan (1) Hematemesis Status: Acute Assessment and plan: 02/08-no further GI bleeding. EGD results noted as below. Pathology report returned today negative for H. pylori. Repeat EGD set up for March 29 as outpatient. Okay to discharge home from GI standpoint. Continue on Protonix twice daily until repeat EGD. Plan an addendum to follow Dr. Larsen. Gastroenterology - PN: Subj Interval history: CC: Hematemesis Patient seen awake and alert with family at bedside. She is post EGD on yesterday with findings of acute gastric ulcer with biopsies for H. pylori pending at this time. Her H&H is stable at . She is having no complaints of abdominal pain, nausea vomiting. She is tolerating her diet well this time. Abdomen is soft, nontender. Discussed findings of EGD with patient and we have her set up for March 29 for repeat EGD to evaluate healing. Patient is for tentative discharge home today. ROS: Denies shortness of breath or chest pain Exam (Progress Note) - Constitutional Vitals: Period Temp Pulse Resp BP Sys/Mendez Pulse Ox Last 24 Hr 96.9 F-98.4 F 48-65 18-20 93-145/54-85 95-100 General appearance: normal weight, no acute distress - Head Head exam: Present: normal inspection, normocephalic - Eye Eye exam: Present: other (lids and conjunctiva are unremarkable). Absent: scleral icterus - ENT ENT exam: Present: normal exam, normal oropharynx - Neck Neck exam: Present: normal inspection - Respiratory Respiratory exam: Present: clear to auscultation bilaterally. Absent: rales, rhonchi, wheezes - Cardiovascular Cardiovascular exam: Present: regular rate and rhythm. Absent: diastolic murmur , JVD, systolic murmur - GI/Abdominal GI/Abdominal exam: Present: normal bowel sounds, soft. Absent: ascites, distended, mass, organomegaly, tenderness - Extremities Exam Extremities exam: Present: normal inspection, full ROM - Back Exam Back exam: Present: normal inspection - Neurological Exam Neurological exam: Present: alert, oriented X3 - Psychiatric Psychiatric exam: Present: normal affect, normal mood - Skin Skin exam: Present: normal color, warm, dry Results - Labs CBC & BMP: 02/06/17 03:45 02/06/17 03:45 Lab Results: I have reviewed the past 24 hour labs Specialty Discharge - Follow Up or Referrals Follow up with: Tarik Larsen MD [Physician] - 03/29/17 8:15 am (REPORT TO ADMISSION DEPT. IN THE EMERGENCY ROOM AT 8:15 TO CHECK IN (REGISTER). PLEASE DO NOT EAT OR DRINK ANYTHING PASS MIDNIGHT Mar.28....) <Tarik Larsen - Last Filed: 02/08/17 22:29> Assessment and Plan (1) Hematemesis Status: Acute Exam (Progress Note) - Constitutional Vitals: Period Temp Pulse Resp BP Sys/Mendez Pulse Ox Last 24 Hr 96.9 F-98.4 F 48-53 18-20 93-140/54-84 95-98 Results - Labs CBC & BMP: 02/06/17 03:45 02/06/17 03:45
--- NOTE | 2017-02-08 11:48 | Discharge Summary ---
<Trey Burnsdra - Last Filed: 02/08/17 11:30> Hospital Course - Hospital Course Hospital Course: Ms Ta w/PMHx HTN and GERD presented to the ED on 02/04/17 for further evaluation of hematemesis and epigastric abdominal pain. IN ED: Abd Xray: nothing acute. LABS: H&H stable. Electrolytes WNL. BUN 20, creatinine 1.20. Hospital Medicine consulted for admission, GI consult and repeated labs. H&H remained stable throughout hospitalization. GI consulted for assistance and as follows: Patient had EGD on 02/07/17: resulted for acute gastric ulcer and biopsy did not show H.pylori. Continue PPI treatment, recommend to limit nonsteroidals and alcohol use and will need to have a Repeat EGD on March 29 to verify ulcer healing. Today 02/08/17 patient is stable and symptoms have improved. She will be discharged home today. She will need to follow up with GI physician and have a repeat EGD on 03/29 to verify ulcer is healing. She will also need to follow up with Primary Care Physician. Specialty Discharge - Follow Up or Referrals Follow up with: Tarik Larsen MD [Physician] - 03/29/17 8:15 am (REPORT TO ADMISSION DEPT. IN THE EMERGENCY ROOM AT 8:15 TO CHECK IN (REGISTER). PLEASE DO NOT EAT OR DRINK ANYTHING PASS MIDNIGHT NOV. 6....) Discharge Plan - Discharge Medications New Pantoprazole Tab [Protonix Tab] 40 mg PO BID #60 tablet Continue hydroCHLOROthiazide [Hydrochlorothiazide] 12.5 mg PO QAM hydrALAZINE TAB [Apresoline Tab] 10 mg PO BID Lisinopril [Prinivil] 20 mg PO QAM Discontinued Aspirin EC Tab 81 mg PO QAM - Follow Up or Referral Follow Up: Tarik Larsen MD [Physician] - 03/29/17 8:15 am (REPORT TO ADMISSION DEPT. IN THE EMERGENCY ROOM AT 8:15 TO CHECK IN (REGISTER). PLEASE DO NOT EAT OR DRINK ANYTHING PASS MIDNIGHT NOV. 6....) - Forms/Instructions Exam - Constitutional Vitals: Period Temp Pulse Resp BP Sys/Mendez Pulse Ox Last 24 Hr 96.9 F-98.4 F 48-65 18-20 93-130/54-84 95-98 DS: Provider Date of admission: 02/04/17 12:04 Primary care physician: . No PCP Attending physician on admission: Sterling Mcclellan Consults: 02/05/17 09:37 Consult to Physician [CONS] Routine Comment: hematemesis Consulting Provider: Tarik Larsen Consulting Provider Notified: Yes Consult to Specialist Group: Gastroenterology When should Consulting Provider be notified: Now Person Notified: Dr. Larsen Date Notified: 02/05/17 Time Notified: 12:00 Discharging clinician: Dara Burns NP <Charles Restrepo - Last Filed: 02/08/17 12:22> Hospital Course - Time spent with patient Time with patient DS: Less than 30 minutes Diagnosis - Discharge Diagnosis (1) Upper GI bleeding Status: Resolved Discharge Plan - Discharge Data Condition at Discharge: Stable Discharge Diet: advance to your usual diet Activity: resume usual activities as tolerated Hygiene: no restrictions Weight Bearing at Discharge: full weight bearing Driving: no restrictions Exam - Constitutional Exam: General: No Acute Distress HEENT: Normocephalic, atraumatic, Extra ocular movements intact Neck: Supple, No JVD Chest: Clear to auscultation B/L CV: S1 + S2 audible without murmur, gallop or rub Abd: soft, NT, Non-distended, BS + Ext: No edema Skin: No purpura, bruising or rash Rheumatologic: No Joint deformities Neurologic: Strength 5/5 all extremities, no gross sensory deficits
[2017-02-08 13:08] VITALS: BP 140/78
[2017-02-08] MEDS ORDERED: CLARITHROMYCIN 500 MG TABLET PO SCH (21:00)
[2017-02-08] MEDS ORDERED: metroNIDAZOLE 500 MG TABLET PO SCH (21:00)
[2017-02-08] MEDS ORDERED: PANTOPRAZOLE 40 MG TABLET PO SCH (21:00)
--- NOTE | 2017-02-09 12:29 | Physician Query Form ---
CLICK EDIT DOCUMENT TO SELECT QUERY ANSWER --> OK --> SIGN Zoraida Loza RN Clinical [employer] W) [phone] (f) [phone] [email or web address] PROVIDERS: Make your selection(s) from the choices in EACH section by typing an "x" and enter comments in the comment section. Please use your independent medical judgment in providing your response. This request does not imply that any particular answer is desired or expected. CLINICAL INDICATORS: (Providers should not edit this section) Patient admitted with upper GI bleeding and hematemesis. EGD showed acute gastric ulcer. Based on the above, could you clarify the appropriate diagnosis, if significant , that supports the above abnormalities and additional evaluation, monitoring, and/or treatment rendered: ( x) Pt. treated for acute gastric ulcer with hemorrhage ( ) Pt. treated for acute gastric ulcer without hemorrhage ( ) Other, please specify: ( ) Clinically unable to determine COMMENTS: PLEASE ALSO DOCUMENT RESPONSE IN PROGRESS NOTES AND/OR DISCHARGE SUMMARY Use of terms such as suspected, likely, or probable (associated with a specific diagnosis that is being evaluated, monitored, or treated as if it exists) are acceptable and can be restated in the discharge summary if not ruled out. MTDD
== END 2017-02-08 14:23 | disposition home or self-care (01) | DRG 379 ==
LOC: N.ED 09:33 → SUATTDRO 12:04 → N.EDINP 12:04 → N.2E 12:26
PROVIDERS: ATTEND Hospitalist

== ENCOUNTER 2017-06-23 07:29 | Observation (INO) ==
[2017-06-23] MEDS ORDERED: ASPIRIN 325 MG TABLET PO STA (08:02)
[2017-06-23] MEDS ORDERED: ONDANSETRON 4 MG/2 ML VIAL IV PRN ×2 (08:02→11:11)
[2017-06-23] MEDS ORDERED: MORPHINE 2 MG/1 ML SYRINGE IV PRN ×2 (08:02→11:11)
[2017-06-23] MEDS ORDERED: NITROGLYCERIN 2% OINT 1 INCH/GM PACK TOP STA (08:02)
[2017-06-23 08:15] LABS: Basophils % 0.7 % (0.0-0.8); Eosinophils # 0.2 10*3/uL (0.0-0.87); Eosinophils % 3.9 % (0.00-10.9); Hematocrit 40.7 VOL% (35.7-47.0); Hemoglobin 12.7 GM/DL (12.0-16.0); Immature Granulocytes % 0.4 %; Immature Granulocytes Absolute 0.02 #; Lymphocytes # 1.1 10*3/uL (1.4-4.0); Lymphocytes % 19.9 % (21.3-54.2); Mean Corpuscular HGB Conc 31.2 GM/DL (32-36); Mean Corpuscular Hemoglobin 25 PG (27-34); Mean Corpuscular Volume 81.4 FL (87-102); Mean Platelet Volume 10.3 FL (9.6-12.0); Monocytes # 0.7 10*3/uL (0.11-0.8); Monocytes % 12.2 % (1.7-12.7); Neutrophils # 3.6 10*3/uL (1.4-7.4); Neutrophils % 62.9 % (38.7-73.9); Platelet Count 306 T/CUMM (130-400); Red Cell Distribution Width 14.6 % (9.3-17.3); White Blood Count 5.7 T/CUMM (4-12)
[2017-06-23 08:25] LABS: PT Patient Result 10.5 SECS; Partial Thromboplastin Time 28.5 SECS (0-40)
[2017-06-23 08:44] LABS: Albumin 3.9 G/DL (3.4-5.0); Bilirubin,Total 0.4 MG/DL (0.2-1.0); Calcium 9.3 MG/DL (8.5-10.1); Osmolality,Calculated 276.7 MOS/KG (273-304); Potassium 3.7 MMOL/L (3.5-5.1); Total Protein 8.6 G/DL (6.4-8.3)
[2017-06-23] MEDS ORDERED: ASPIRIN 325 MG TABLET ONE (09:05)
[2017-06-23] MEDS ORDERED: NITROGLYCERIN 2% OINT 1 INCH/GM PACK TOP ONE (09:05)
[2017-06-23 09:25] LABS: Apearance,Urine Slightly Hazy (Clear); Bacteria,Urine Occasional /HPF (Few); Bilirubin,Urine Negative (Negative); Blood, Urine Negative (Negative); Glucose,Urine (UA) Negative (Negative); Ketones,Urine Negative (Negative); Mucus,Urine Occasional /LPF (Occasional); Nitrite,Urine Negative (Negative); Protein,Urine 30 MG/DL; RBC,Urine 2 /HPF (0-4); Squamous Epithelial Cell,Urine Occasional /HPF (0-10); Urine Color Yellow (Yellow); Urine Specific Gravity 1.019 (1.001-1.035); Urine Urobilinogen < 2.0 EU/DL (0.2-1.0); WBC,Urine 13 /HPF (0-6)
[2017-06-23 09:27] LABS: Barbiturates Screen,Urine Negative (Negative); Benzodiazepines Screen,Urine Negative (Negative); Cannabinoid Screen,Urine Negative (Negative); Opiate Screen,Urine Negative (Negative); Phencyclidine Screen,Urine Negative (Negative)
[2017-06-23] MEDS ORDERED: ACETAMINOPHEN 325 MG TABLET PO PRN (11:11)
[2017-06-23] MEDS ORDERED: ENOXAPARIN 40 MG/0.4 ML SYRINGE SUBCUT SCH (12:30)
[2017-06-23] MEDS: LEVOFLOXACIN INJ 750 MG in PREMIX 1 EACH IV SCH (14:25)
[2017-06-23] MEDS: PANTOPRAZOLE 40 MG TABLET PO SCH ×2 (14:50→20:41)
[2017-06-23] MEDS ORDERED: NITROGLYCERIN SL 0.4 MG TABLET SL PRN (17:31)
[2017-06-23] MEDS ORDERED: POTASSIUM CHLORIDE 20 MEQ TABLET PO PRN (17:40)
[2017-06-23] MEDS ORDERED: MAGNESIUM SULF RIDER 4 GM in PREMIX 1 EACH IV PRN (17:41)
[2017-06-23] MEDS ORDERED: MAGNESIUM SULF RIDER 2 GM in PREMIX 1 EACH IV PRN (17:41)
[2017-06-24 06:27] LABS: Basophils % 0.8 % (0.0-0.8); Eosinophils # 0.2 10*3/uL (0.0-0.87); Hematocrit 36.6 VOL% (35.7-47.0); Hemoglobin 11.6 GM/DL (12.0-16.0); Immature Granulocytes % 0.4 %; Immature Granulocytes Absolute 0.02 #; Lymphocytes # 1.1 10*3/uL (1.4-4.0); Lymphocytes % 21.6 % (21.3-54.2); Mean Corpuscular HGB Conc 31.7 GM/DL (32-36); Mean Corpuscular Hemoglobin 26 PG (27-34); Mean Corpuscular Volume 81.2 FL (87-102); Mean Platelet Volume 10.5 FL (9.6-12.0); Monocytes # 0.8 10*3/uL (0.11-0.8); Monocytes % 14.6 % (1.7-12.7); Neutrophils % 58.6 % (38.7-73.9); Platelet Count 275 T/CUMM (130-400); Red Blood Count 4.51 MC/CUMM (3.8-5.5); Red Cell Distribution Width 14.7 % (9.3-17.3); White Blood Count 5.2 T/CUMM (4-12)
[2017-06-24 06:54] LABS: Calcium 9.1 MG/DL (8.5-10.1); Magnesium 2.2 MG/DL (1.8-2.4); Osmolality,Calculated 279.5 MOS/KG (273-304); Potassium 3.9 MMOL/L (3.5-5.1)
[2017-06-24 07:15] LABS: Calcium 9.1 MG/DL (8.5-10.1); Magnesium 2.2 MG/DL (1.8-2.4); Osmolality,Calculated 280.4 MOS/KG (273-304); Potassium 4.1 MMOL/L (3.5-5.1); Risk Ratio 4.45; Thyroid Stimulating Hormone 2.4 uIU/ml (0.358-3.74); VLDL CHOLESTEROL 30.4 MG/DL
[2017-06-24] MEDS ORDERED: ASPIRIN EC 81 MG TABLET PO SCH (09:00)
[2017-06-24] MEDS: LEVOFLOXACIN INJ 750 MG in PREMIX 1 EACH IV SCH (10:10)
[2017-06-24] MEDS: PANTOPRAZOLE 40 MG TABLET PO SCH (10:10)
[2017-06-24 11:43] VITALS: BP 113/67
== END 2017-06-24 14:58 | disposition home or self-care (01) ==
LOC: N.EDINP 07:29 → N.ED 07:29 → N.2E 13:50
PROVIDERS: ADMIT Internal Medicine; ATTEND Internal Medicine

== ENCOUNTER 2017-10-25 10:24 | Observation (INO) ==
[2017-10-25] MEDS ORDERED: ASPIRIN 325 MG TABLET PO STA (10:42)
[2017-10-25] MEDS ORDERED: ENOXAPARIN 100 MG/ML SYRINGE SUBCUT STA (10:42)
[2017-10-25 10:59] LABS: Basophils % 0.6 % (0.0-0.8); Eosinophils # 0.2 10*3/uL (0.0-0.87); Eosinophils % 3.4 % (0.00-10.9); Hemoglobin 12.6 GM/DL (12.0-16.0); Immature Granulocytes % 0.4 %; Immature Granulocytes Absolute 0.02 #; Lymphocytes % 20.4 % (21.3-54.2); Mean Corpuscular HGB Conc 30.7 GM/DL (32-36); Mean Corpuscular Hemoglobin 25 PG (27-34); Mean Corpuscular Volume 81.3 FL (87-102); Mean Platelet Volume 10.9 FL (9.6-12.0); Monocytes # 0.5 10*3/uL (0.11-0.8); Monocytes % 10.6 % (1.7-12.7); Neutrophils % 64.6 % (38.7-73.9); Platelet Count 239 T/CUMM (130-400); Red Blood Count 5.04 MC/CUMM (3.8-5.5); Red Cell Distribution Width 15.5 % (9.3-17.3); White Blood Count 4.7 T/CUMM (4-12)
[2017-10-25 11:35] LABS: Albumin 3.4 G/DL (3.4-5.0); Bilirubin,Total 0.4 MG/DL (0.2-1.0); Calcium 9.1 MG/DL (8.5-10.1); Osmolality,Calculated 281.1 MOS/KG (273-304); Total Protein 8.5 G/DL (6.4-8.3)
[2017-10-25] MEDS ORDERED: ACETAMINOPHEN 325 MG TABLET PO PRN (12:17)
[2017-10-25] MEDS ORDERED: ONDANSETRON 4 MG/2 ML VIAL IV PRN (12:17)
[2017-10-25] MEDS ORDERED: hydrALAZINE 20 MG/1 ML VIAL IV PRN (12:55)
[2017-10-25 14:05] LABS: Apearance,Urine CLEAR (Clear); Bilirubin,Urine Negative (Negative); Blood, Urine Negative (Negative); Glucose,Urine (UA) Negative (Negative); Ketones,Urine Negative (Negative); Mucus,Urine Occasional /LPF (Occasional); Nitrite,Urine Negative (Negative); Protein,Urine 30 MG/DL; RBC,Urine 1 /HPF (0-4); Squamous Epithelial Cell,Urine Occasional /HPF (0-10); Urine Color Straw (Yellow); Urine Specific Gravity 1.006 (1.001-1.035); Urine Urobilinogen < 2.0 EU/DL (0.2-1.0); WBC,Urine 3 /HPF (0-6)
[2017-10-25] MEDS: MEROPENEM 1,000 MG in SYRINGE 1 EACH IV SCH ×3 (17:17→17:38)
[2017-10-25 21:13] LABS: Troponin I Only < 0.015 NG/ML (0.00-0.045)
[2017-10-25] MEDS: LOSARTAN 50 MG TABLET PO SCH (21:29)
[2017-10-25 23:02] LABS: Troponin I Only < 0.015 NG/ML (0.00-0.045)
[2017-10-26 05:08] LABS: Basophils % 0.4 % (0.0-0.8); Eosinophils # 0.2 10*3/uL (0.0-0.87); Eosinophils % 4.1 % (0.00-10.9); Hematocrit 39.9 VOL% (35.7-47.0); Hemoglobin 12.7 GM/DL (12.0-16.0); Immature Granulocytes % 0.4 %; Immature Granulocytes Absolute 0.02 #; Lymphocytes # 1.2 10*3/uL (1.4-4.0); Lymphocytes % 23.9 % (21.3-54.2); Mean Corpuscular HGB Conc 31.8 GM/DL (32-36); Mean Corpuscular Hemoglobin 25 PG (27-34); Mean Corpuscular Volume 78.9 FL (87-102); Mean Platelet Volume 11.4 FL (9.6-12.0); Monocytes # 0.5 10*3/uL (0.11-0.8); Monocytes % 9.8 % (1.7-12.7); Neutrophils # 3.2 10*3/uL (1.4-7.4); Neutrophils % 61.4 % (38.7-73.9); Platelet Count 258 T/CUMM (130-400); Red Blood Count 5.06 MC/CUMM (3.8-5.5); Red Cell Distribution Width 15.4 % (9.3-17.3); White Blood Count 5.2 T/CUMM (4-12)
[2017-10-26 05:44] LABS: Risk Ratio 5.64; VLDL CHOLESTEROL 65.2 MG/DL
[2017-10-26 05:45] LABS: Calcium 8.9 MG/DL (8.5-10.1); Osmolality,Calculated 281.3 MOS/KG (273-304); Potassium 3.7 MMOL/L (3.5-5.1)
[2017-10-26 06:19] LABS: Free T4 (Free Thyroxine) 0.95 NG/DL (0.76-1.46)
[2017-10-26] MEDS: MEROPENEM 1,000 MG in SYRINGE 1 EACH IV SCH ×2 (06:20→17:54)
[2017-10-26] MEDS: PANTOPRAZOLE 40 MG TABLET PO SCH (08:28)
[2017-10-26] MEDS: LOSARTAN 50 MG TABLET PO SCH ×2 (08:28→21:16)
[2017-10-26] MEDS: ASPIRIN EC 81 MG TABLET PO SCH (08:28)
[2017-10-26] MEDS: OMEGA 3 ACID ETHYL ESTERS 1 GM CAPSULE PO SCH ×2 (09:48→21:16)
[2017-10-26] MEDS ORDERED: ROSUVASTATIN 10 MG TABLET PO SCH (21:00)
[2017-10-27] MEDS: MEROPENEM 1,000 MG in SYRINGE 1 EACH IV SCH (05:28)
[2017-10-27 05:42] LABS: Basophils % 0.4 % (0.0-0.8); Eosinophils # 0.1 10*3/uL (0.0-0.87); Eosinophils % 1.4 % (0.00-10.9); Hematocrit 42.7 VOL% (35.7-47.0); Hemoglobin 13.5 GM/DL (12.0-16.0); Immature Granulocytes % 0.3 %; Immature Granulocytes Absolute 0.02 #; Lymphocytes # 0.9 10*3/uL (1.4-4.0); Lymphocytes % 12.2 % (21.3-54.2); Mean Corpuscular HGB Conc 31.6 GM/DL (32-36); Mean Corpuscular Hemoglobin 25 PG (27-34); Mean Corpuscular Volume 79.2 FL (87-102); Mean Platelet Volume 10.3 FL (9.6-12.0); Monocytes # 0.7 10*3/uL (0.11-0.8); Monocytes % 9.5 % (1.7-12.7); Neutrophils # 5.4 10*3/uL (1.4-7.4); Neutrophils % 76.2 % (38.7-73.9); Platelet Count 261 T/CUMM (130-400); Red Blood Count 5.39 MC/CUMM (3.8-5.5); Red Cell Distribution Width 15.2 % (9.3-17.3); White Blood Count 7.1 T/CUMM (4-12)
[2017-10-27 08:03] LABS: Calcium 9.5 MG/DL (8.5-10.1); Osmolality,Calculated 275.7 MOS/KG (273-304); Potassium 3.9 MMOL/L (3.5-5.1)
[2017-10-27] MEDS: OMEGA 3 ACID ETHYL ESTERS 1 GM CAPSULE PO SCH (08:08)
[2017-10-27] MEDS: LOSARTAN 50 MG TABLET PO SCH (08:08)
[2017-10-27] MEDS: PANTOPRAZOLE 40 MG TABLET PO SCH (08:08)
[2017-10-27] MEDS: ASPIRIN EC 81 MG TABLET PO SCH (08:08)
[2017-10-27 12:15] VITALS: BP 138/79
== END 2017-10-27 12:40 | disposition home or self-care (01) ==
LOC: EDUNIT# → EDBD → N.EDINP 10:24 → N.ED 10:24 → N.TELEN 13:52